=== PATIENT | female | born 1995 | race African-American/Black ===

== ENCOUNTER 2017-12-28 03:45 | Inpatient (IN) | payer MEDICAID ==
[~2017-12-28] VITALS: Ht 190.5 cm; Wt 117.9 kg
[2017-12-28] MEDS ORDERED: PNV1TABL76 MT (05:05)
[2017-12-28] MEDS ORDERED: LACTATED RINGERS 1,000 ML IV SCH (05:17)
[2017-12-28] MEDS ORDERED: BUTORPHANOL TARTRATE 2 MG/ML VIAL IV PRN (05:30)
[2017-12-28] MEDS ORDERED: CARBOPROST TROMETHAMINE 250 MCG/ML AMPUL IM PRN (05:30)
[2017-12-28] MEDS ORDERED: LIDOCAINE HCL 1% 20ML VIAL (Pyxis) INJ INFIL SCH (05:30)
[2017-12-28] MEDS ORDERED: METHYLERGONOVINE MALEATE 0.2 MG/ML IM PRN (05:30)
[2017-12-28] MEDS ORDERED: NALOXONE HCL 0.4 MG/ML 1ML VIAL IM PRN (05:30)
[2017-12-28] MEDS ORDERED: PENICILLIN G POTASSIUM 5 MMU in DEXT 5% WATER 100 ML IV NR (06:00)
[2017-12-28 07:17] LABS: HEMATOCRIT. 32.3 % (36.0-48.0); HEMOGLOBIN. 10.7 g/dL (12.0-16.0); MEAN CORPUSCULAR HEMOGLOBIN 27.2 pg (28.0-32.0); MEAN CORPUSCULAR VOLUME 82.4 fL (81.0-99.0); PLATELET 290 x1000/uL (130-400); RED BLOOD CELL COUNT 3.92 mill/uL (4.2-5.4); RED CELL DISTRIBUTION WIDTH 14.1 % (11.6-14.6)
[2017-12-28 07:18] LABS: BASOPHILS % 0.2 % (0.0-2.0); LYMPHOCYTES % 16.1 % (20.0-50.0); MEAN PLATELET VOLUME 7.2 fl (7.4-10.4); MONOCYTES % 7.2 % (2.0-8.0); NEUTROPHILS % 75.5 % (40.0-76.0)
[2017-12-28] MEDS: DEXT 5%/LR + PITOCIN 20UNITS/L 1,000 ML IV SCH ×2 (09:00→09:03)
[2017-12-28] MEDS ORDERED: DEXT 5%/LR + PITOCIN 20UNITS/L 1,000 ML IV SCH (09:25)
[2017-12-28] MEDS ORDERED: IBUPROFEN 400MG TABLET PO PRN (09:30)
[2017-12-28] MEDS ORDERED: LANOLIN OINT 0.25 GM TUBE TOP PRN (09:30)
[2017-12-28] MEDS ORDERED: PENICILLIN G POTASSIUM 2.5 MMU in DEXTROSE 5% WATER 50 ML IV SCH (10:00)
[2017-12-28 10:40] VITALS: BP 100/66
[2017-12-28 10:58] LABS: HEPATITIS B SURFACE ANTIGEN NEGATIVE
[2017-12-28 11:10] VITALS: BP 98/71
[2017-12-28] MEDS: IBUPROFEN 800MG TABLET PO PRN (13:05)
[2017-12-28 14:58] LABS: *AMPHETAMINES SCREEN URINE NEGATIVE (NEGATIVE); *BARBITURATES SCREEN URINE NEGATIVE (NEGATIVE); *BENZODIAZEPINES SCREEN URINE NEGATIVE (NEGATIVE); *COCAINE SCREEN URINE NEGATIVE (NEGATIVE); CANNABINOID URINE SCREEN NEGATIVE (NEGATIVE); METHADONE URINE SCREEN NEGATIVE (NEGATIVE); OPIATES URINE SCREEN NEGATIVE (NEGATIVE); PHENCYCLIDINE URINE SCREEN NEGATIVE (NEGATIVE)
[2017-12-28 16:10] VITALS: BP 102/75
[2017-12-28 22:58] VITALS: BP 115/74
[2017-12-29 01:10] VITALS: BP 98/48
[2017-12-29 05:00] VITALS: BP 118/70
[2017-12-29 07:19] LABS: BASOPHILS % 0.2 % (0.0-2.0); EOSINOPHILS % 1.9 % (0.0-5.0); HEMATOCRIT. 32.1 % (36.0-48.0); HEMOGLOBIN. 10.6 g/dL (12.0-16.0); LYMPHOCYTES % 22.1 % (20.0-50.0); MEAN CORPUSCULAR HEMOGLOBIN 27.1 pg (28.0-32.0); MEAN CORPUSCULAR VOLUME 82.3 fL (81.0-99.0); MONOCYTES % 7.5 % (2.0-8.0); NEUTROPHILS % 68.3 % (40.0-76.0); PLATELET 288 x1000/uL (130-400); RED BLOOD CELL COUNT 3.89 mill/uL (4.2-5.4); RED CELL DISTRIBUTION WIDTH 14.4 % (11.6-14.6)
[2017-12-29 08:45] VITALS: BP 104/59
[2017-12-29] MEDS: PRENATAL VIT/FE FUMARATE/FA TABLET PO SCH (10:06)
[2017-12-29] MEDS: IBUPROFEN 800MG TABLET PO PRN (14:31)
[2017-12-29 16:45] VITALS: BP 117/87
[2017-12-29 22:00] VITALS: BP 105/67
[2017-12-30 04:48] VITALS: BP 112/71
[2017-12-30 08:10] VITALS: BP 101/67
[2017-12-30] MEDS: PRENATAL VIT/FE FUMARATE/FA TABLET PO SCH (09:47)
== END 2017-12-30 12:00 | disposition home or self-care (01) | DRG 560 ==
LOC: OBSVTOIN 03:45 → L&D 03:45 → 7EST PP/OB 11:15
PROVIDERS: ADMIT Obstetrics & Gynecology; ATTEND Obstetrics & Gynecology
PROC: 10E0XZZ Delivery of Products of Conception, External Approach (ICD-10-PCS; principal; 2017-12-28 07:52)
DX: O48.0 Post-term pregnancy (principal); D62 Acute posthemorrhagic anemia; O70.0 First degree perineal laceration during delivery; O99.02 Anemia complicating childbirth; Z37.0 Single live birth; Z3A.40 40 weeks gestation of pregnancy
CPT/HCPCS: 36415; 76805; 76818; 80305; 86592; 86703; 86762; 86850; 86900; 87340; 99281; J0595; J2540; J2590; J7060; J7120